=== PATIENT | female | born 1965 | race Caucasian/White ===

== ENCOUNTER 2021-08-13 02:08 | Emergency (ER) | payer MEDICAID, OTHER ==
[~2021-08-13] VITALS: Ht 157.5 cm; Wt 80.7 kg
[~2021-08-13 02:08] MED LIST: LEVO0.083 PO
[2021-08-13 02:15] VITALS: BP 110/73
--- NOTE | 2021-08-13 02:15 | NUR ---
TO BED AMBULATORY
--- NOTE | 2021-08-13 02:44 | NUR ---
56 Y/O FEMALE BIBS FROM HOME, C/O ABD PAIN X3 DAYS. PT STATES SHE HAS RUQ AND LUQ PAIN 8/10 THAT COMES AND GOES. +N/V/D W/O BLOOD. A/OX4, GCS-15, UNLABORED BREATHING; AMBULATORY;SKIN IS PINK/DRY/WARM; DENIES FEVER, COUGH, SOB, OR CP. PT TOOK MOM AND OMEPRAZOLE AT HOME W/O RELIEF. PT SEATED IN BED WITH HOB RAISED AND BED IN LOWEST SETTING, AND RAIL UP X1. HX: DM, ASTHMA, THYROID, AND BREAST CANCER 5 YRS AGO [facility] MEDS: METFORMIN, ATORVASTATIN, HYRDROXYZINE, GABAPENTIN, LEVOTHYROXINE, SINGULAIR
[2021-08-13 03:08] LABS: APPEARANCE,URINE CLEAR (CLEAR); BILIRUBIN,URINE NEGATIVE (NEGATIVE); BLOOD, URINE NEGATIVE (NEGATIVE); COLOR,URINE YELLOW (YELLOW); LEUKOCYTE ESTERASE ,URINE 1+ (NEGATIVE); NITRITE, URINE NEGATIVE (NEGATIVE); UGLUCOSE NEGATIVE (NEGATIVE)
[2021-08-13 03:15] LABS: RBC,URINE 0-5 /HPF (0-5); WBC,URINE 0-5 /HPF (0-5)
--- NOTE | 2021-08-13 03:22 | NUR ---
ER MD AT BEDSIDE EXAMINING PT
[2021-08-13] MEDS ORDERED: KETOROLAC 30 MG/ML VIAL IVP ONE (03:30)
[2021-08-13] MEDS ORDERED: NACL 0.9% 1,000 ML IV SCH (03:30)
[2021-08-13] MEDS ORDERED: ONDANSETRON 4 MG/2 ML VIAL IVP ONE (03:30)
--- NOTE | 2021-08-13 03:30 | NUR ---
SENIOR CAREGIVER AT BEDSIDE
[2021-08-13 03:41] LABS: BASOPHILS % (AUTO) 0.3 % (0.0-2.0); EOSINOPHILS # (AUTO) 0.1 K/uL (0-0.4); EOSINOPHILS % (AUTO) 2.1 % (0.0-4.0); HEMATOCRIT 37.4 % (36-48); HEMOGLOBIN 12.8 g/dL (12.0-16.0); LYMPHOCYTES # (AUTO) 2.2 K/uL (2.5-16.5); LYMPHOCYTES % (AUTO) 34.9 % (20.5-51.1); MEAN CORPUSCULAR HEMOGLOBIN 31 pg (27-31); MEAN CORPUSCULAR HGB CONC 34 g/dL (33-37); MEAN CORPUSCULAR VOLUME 89.8 fL (80-94); MONOCYTES # (AUTO) 0.4 K/uL (0.8-1.0); MONOCYTES % (AUTO) 6.9 % (1.7-9.3); NEUTROPHILS # (AUTO) 3.5 K/uL (1.8-7.7); NEUTROPHILS % (AUTO) 55.8 % (42.2-75.2); PLATELET COUNT (AUTO) 185 K/uL (140-450); RED BLOOD CELL COUNT(AUTO) 4.17 MIL/uL (4.20-5.40); WHITE BLOOD COUNT (AUTO) 6.3 K/uL (4.8-10.8)
[2021-08-13 04:03] LABS: ALBUMIN 3.5 g/dL (3.4-5.0); ANION GAP 12.9 (8-16); CARBON DIOXIDE 30.3 mmol/L (21-32); CREATININE 0.8 mg/dL (0.6-1.3); POTASSIUM 4.2 mmol/L (3.5-5.1); TOTAL BILIRUBIN 0.6 mg/dL (0.0-1.0)
--- NOTE | 2021-08-13 04:15 | NUR ---
PT RETURNED FROM CT
[2021-08-13] MEDS ORDERED: IBUP-2213 PO (05:56)
[2021-08-13] MEDS ORDERED: ONDA-188 SL (05:56)
[2021-08-13] MEDS ORDERED: CEPH-588 PO (05:56)
[2021-08-13] MEDS ORDERED: HYDROcodone/APAP 5/325 MG 1 TAB TAB PO ONE (06:05)
[2021-08-13 06:15] VITALS: BP 114/49
--- NOTE | 2021-08-13 06:15 | NUR ---
Patient discharged with v/s stable. Written and verbal after care instructions given and explained. Patient alert, oriented and verbalized understanding of instructions. Ambulatory with steady gait. All questions addressed prior to discharge. ID band removed. Patient advised to follow up with PMD. Rx of IBUPROFEN given. Patient educated on indication of medication including possible reaction and side effects. Opportunity to ask questions provided and answered. VSS, A/OX4, UNLABORED BREATHING, AMBULATORY, AND CALM DEMEANOR.
== END 2021-08-13 06:18 | disposition home or self-care (01) ==
LOC: MED 02:08
DX: R10.9 Unspecified abdominal pain (principal); J45.909 Unspecified asthma, uncomplicated; E11.9 Type 2 diabetes mellitus without complications; Z85.3 Personal history of malignant neoplasm of breast; Z79.899 Other long term (current) drug therapy
CPT/HCPCS: 36415; 74176; 80053; 81001; 81025; 83690; 85025; 87086; 96361; 96374; 96375; 99284; J1885; J2405; J7030